=== PATIENT | male | born 1950 | race Caucasian/White ===

== ENCOUNTER → 2016-10-19 | Outpatient (CLI) | payer OTHER ==
[~2016-10-19] MED LIST: BUPROPION HCL100 MG PO; CHEWABLE ASPIRI81 MG PO; LISINOPRIL2.5 MG PO; LORTAB 5/500 501 TAB PO; METOPROLOL25 MG PO; SIMVASTATIN40 MG PO
--- NOTE | 2016-10-22 05:34 | RADIOLOGY REPORT PS360 ---
CT CHEST W/O CONTRAST HISTORY: Dyspnea, follow up abnormal chest CT ABNORMAL FINDINGS DIAGNOSTIC IMAGES,PULMONARY GRANULOMATOS ORDERING PHYSICIAN: MARIA ISABEL WILKERSON MD PATIENT AGE: 66 years TECHNIQUE: Helical acquisition obtainedwithout contrast. Axial, sagittal, and coronal reformatted images are generated and reviewed. COMPARISON: 04/29/2015 FINDINGS: Scattered small lymph nodes are present within the mediastinum. These do not appear significantly changed. Coronary artery calcifications are present consistent with coronary artery disease. There is some mild bulging along the anterior and left lateral aspect of the main pulmonary artery not significant changed. The previously described diffuse reticular nodular opacification in the right upper lobe and left lower lobe has improved. There is some residual opacification in these areas but has moderately improved compared to the previous exam with some minimal interstitial thickening. No new suspicious nodules evident. No new areas of infiltrate or pleural effusion apparent. Upper abdominal images show diffuse hepatic steatosis. No acute bony anomalies. IMPRESSION: 1. Overall improvement in the appearance of the chest with improvement in the diffuse reticular nodular opacities in the right upper lobe and left lower lobe. There is some residual opacification in these areas which may be due to pulmonary fibrotic change 2. No change scattered small mediastinal lymph nodes. 3. Coronary artery disease. 4. Mild bulging along the anterior left lateral aspect of the pulmonary artery consistent with minimal aneurysmal involvement not significant changed
== END ==
LOC: RAD 12:31
DX: R91.8 Other nonspecific abnormal finding of lung field (principal); J98.4 Other disorders of lung

== ENCOUNTER → 2017-02-12 | Outpatient (CLI) | payer OTHER ==
[~2017-02-12] MED LIST changes: +ATORVASTATIN CA80 MG PO; +BUPROPION HCL300 MG PO; +CARVEDILOL6.25 M1 PO; +LEVOCETIRIZINE D5 MG PO; +LEVOTHYROXINE0.05 M2 PO; +PANTOPRAZOLE SO40 M1 PO; +QVAR8.7 G1 IH; +RANITIDINE HCL150 MG PO; +ZOFRAN4 MG PO
--- NOTE | 2017-02-12 08:53 | RADIOLOGY REPORT PS360 ---
US RUQ-(ABD LTD)1ORGAN/QUAD/FU COMPARISON: CT scan abdomen and pelvis 02/09/2017 and ultrasound right upper quadrant 09/29/2014 HISTORY: ] Right upper Quadrant pain, recent CT scan showing probable gallstones TECHNIQUE: Targeted ultrasound right upper quadrant FINDINGS: The pancreas is normal. Liver is normal in size and shows diffuse overall increased echogenicity suggesting fatty infiltration. The gallbladder is normal size and there are couple of tiny partially calcified gallstones near the neck of the gallbladder along with somewhat echogenic biliary sludge. The common bile duct is normal caliber. The portal vein appears normal. The right kidney measures 10.0 x 4.2 x 6.2 cm and shows a good cortical medullary junction with no abnormality. IMPRESSION: Diffuse fatty liver along with small partially calcified gallstones and biliary sludge
== END ==
LOC: RAD 07:17
DX: R10.11 Right upper quadrant pain (principal)